=== PATIENT | female | born 1940 | race Caucasian/White ===

== ENCOUNTER 2018-04-27 09:48 | Emergency (ER) | payer MEDICARE ==
[2018-04-27 10:09] VITALS: BP 153/71
--- NOTE | 2018-04-27 10:52 | UC ---
Shoulder Pain HPI - HPI Summary HPI Summary: 77-year-old woman comes in with a chief complaint of right shoulder right hip and right pelvis pain after a fall 2 days ago. She slipped and fell on the ice and landed on her right side. She is able to get herself up but she is continuing to have pain in the right shoulder right hip and the right side of her pelvis. At rest her pain is minimal when she walks her pain goes to a 7 out of 10. During the fall she denies hitting her head and she is not on any blood thinners denies any neck pain chest pain shortness of breath or abdominal pain. She's been able to eat and drink fine bowels and bladder are normal. No complaint of any wrist or elbow or ankle foot pain. - History of Current Complaint Chief Complaint: UCLowerExtremity Stated Complaint: SP FALL-RT SHOULDER,HIP,KNEE INJURY Time Seen by Provider: 04/27/18 10:29 Hx Last Menstrual Period: n/a Pain Intensity: 8 - Allergies/Home Medications Allergies/Adverse Reactions: Allergies Allergy/AdvReac Type Severity Reaction Status Date / Time No Known Allergies Allergy Verified 04/27/18 10:09 Home Medications: Home Medications Acetaminophen [Tylenol Extra Strength] 1,000 mg PO ONCE PRN 04/27/18 [History Confirmed 04/27/18] PMH/Surg Hx/FS Hx/Imm Hx Previously Healthy: Yes Endocrine History: Hypothyroidism GI/ History: Gastroesophageal Reflux - Surgical History Surgical History: None - Family History Known Family History: Positive: Other - no FMH of osteoporosis - Social History Alcohol Use: None Substance Use Type: None Smoking Status (MU): Former Smoker Type: Cigarettes Amount Used/How Often: 1/2 - 1 PPD Length of Time of Smoking/Using Tobacco: 20-30 Years Have You Smoked in the Last Year: No When Did the Patient Quit Smoking/Using Tobacco: 1998 Review of Systems All Other Systems Reviewed And Are Negative: Yes Constitutional: Positive: Negative Skin: Positive: Negative Eyes: Positive: Negative ENT: Positive: Negative Respiratory: Positive: Negative Cardiovascular: Positive: Negative Gastrointestinal: Positive: Negative Motor: Positive: Negative Neurovascular: Positive: Negative Musculoskeletal: Positive: Other: - SEE HPI Neurological: Positive: Negative Psychological: Positive: Negative Is Patient Immunocompromised?: No Physical Exam Triage Information Reviewed: Yes Appearance: Well-Appearing, Well-Nourished, Pain Distress - WITH AMBULATION AND ROM RT SHOULDER Vital Signs: Initial Vital Signs Temp 97.5 F 04/27/18 10:03 Pulse 71 04/27/18 10:03 Resp 16 04/27/18 10:03 BP 153/71 04/27/18 10:03 Pulse Ox 97 04/27/18 10:03 Vital Signs Reviewed: Yes Eye Exam: Normal Eyes: Positive: Conjunctiva Clear Neck exam: Normal Neck: Positive: Supple, Nontender Respiratory: Positive: Chest non-tender, Lungs clear, Normal breath sounds, No respiratory distress Cardiovascular: Positive: RRR Abdominal Exam: Normal Abdomen Description: Positive: Nontender, Soft Musculoskeletal: Positive: Other: - Patient is tender to palpation of the right shoulder joint. Range of motion is limited in flexion and abduction to 70 secondary to pain. Patient has normal radial pulses normal capillary refill in the arms fingers wrists and elbows have full range of motion and full strength. Patient is tender to palpation on the right greater "trochanter of the right hip. Also tender to palpation of the right SI joint. Patient's tender to palpation on the right knee she has full range of motion of the right knee and is stable to exam. Neurological Exam: Normal Neurological: Positive: Alert, Muscle Tone Normal Psychological Exam: Normal Psychological: Positive: Age Appropriate Behavior Skin Exam: Normal Shoulder Course/Dx - Course Course Of Treatment: Order Information: KNEE RIGHT 4+ VWS. Accession Number: [id number]. CPT: 76251. Indication: Right knee pain. 4 views of the right knee demonstrates no fracture. No joint effusion is noted. IMPRESSION: No fracture of the right knee is noted. . <Electronically signed by Millie Haile MD in OV> 04/27/18 1110. Order Information: SHOULDER RIGHT 2+ VWS. Accession Number: [id number]. CPT: 32285. Indication: RIGHT shoulder pain post fall. Comparison: No relevant prior exams available on the [facility] for comparison. Technique: Internal rotation AP, external rotation Grashey, scapular Y, axillary views. RIGHT shoulder. REPORT AND IMPRESSION: #. Suggestion of fracture involving the coracoid process of the scapula with approximate. 0.6 cm lateral displacement reference the external rotation view. No additional fracture. evident. #. Normal acromioclavicular and glenohumeral joint alignment. #. Probable glenohumeral joint effusion. Suggestion of soft tissue swelling at the. axillary level. #. Correlate with clinical assessment and consider CT for further evaluation. . <Electronically signed by Kenneth Do MD in OV> 1112. Order Information: CT PELVIS W/O. Accession Number: [id number]. CPT : 33567. HISTORY: RT HIP/PELVIS PAIN S/P FALL. COMPARISONS: None. TECHNIQUE: Multiple contiguous axial CT images are obtained of the pelvis , with coronal. and sagittal multiplanar reconstructions, without intravenous contrast administration. FINDINGS: BONE DENSITY: There is diffuse osteopenia. BONES: There is a longitudinally oriented nondisplaced fracture through the right sacral. ala. JOINTS: There is moderate osteoarthritis of the hips with mild osteoarthritis of the SI. joints. MUSCULATURE: Unremarkable. ALIGNMENT: There is no dislocation. SOFT TISSUES: There is diverticulosis of the colon. There is atherosclerosis of the aorta. OTHER FINDINGS: Degenerative changes are noted of the lower lumbar spine. IMPRESSION: 1. NONDISPLACED FRACTURE OF THE RIGHT SACRUM. 2. OSTEOPENIA. 3. OSTEOARTHRITIS. . <Electronically signed by Jass Botello MD in OV> 04/27/18 5119. I discussed the x-rays with the patient. Patient is minimal shoulder pain. She's been able to move her shoulder. Overall therefore her neck and use a sling at this time to help maintain range of motion. Right sacrum fracture is nondisplaced and the patient's been able to ambulate. I recommended that she uses a walker at home and minimize ambulation to just activities of daily living. The plan will be to follow-up with orthopedics. Patient will be taking acetaminophen for pain as needed. I let her know if anything got worse she needed to get reevaluated right away. - Differential Dx/Diagnosis Provider Diagnosis: Closed right scapular fracture, Fracture of sacrum, Contusion of right knee Discharge - Sign-Out/Discharge Documenting (check all that apply): Patient Departure All imaging exams completed and their final reports reviewed: Yes - Discharge Plan Condition: Stable Disposition: HOME Patient Education Materials: Sacral Fracture (ED), Knee Pain (ED), Scapular Fracture (ED) Referrals: Maurice Ledesma MD [Primary Care Provider] - Manuel Mckenzie MD [Medical Doctor] - Additional Instructions: FOLLOW UP WITH ORTHOPEDICS, DR MCKENZIE. GET RECHECKED FOR ANY WORSENING OF YOUR CONDITION; PAIN, WEAKNESS, NUMBNESS, DIFFICULTY CONTROLLING BOWEL OR BLADDER, YOU FEEL ILL OR QUESTIONS OR CONCERNS. - Billing Disposition and Condition Condition: STABLE Disposition: Home
== END 2018-04-27 12:25 | disposition home or self-care (01) ==
LOC: UCCORT 09:48
DX: S42.101A Fracture of unspecified part of scapula, right shoulder, initial encounter for closed fracture (principal); S80.01XA Contusion of right knee, initial encounter; S32.10XA Unspecified fracture of sacrum, initial encounter for closed fracture; Z87.891 Personal history of nicotine dependence; W00.0XXA Fall on same level due to ice and snow, initial encounter; Y92.9 Unspecified place or not applicable
CPT/HCPCS: 72192; 99211; G0463

== ENCOUNTER 2018-07-19 08:16 | Inpatient (IN) | payer MEDICARE ==
--- NOTE | 2018-07-06 13:24 | HP ---
HISTORY AND PHYSICAL: DATE OF ADMISSION/SURGERY: 07/19/18 PROVIDER: Dr. Sara Jackson* (dictated by BEBETO Carrillo). HISTORY OF PRESENT ILLNESS: Ms. Blount is a 77-year-old female who reports acute on chronic bilateral hip pain that has been plaguing her for many years. She states the pain is an 8/10 and is sharp and constant in her groin. She finds difficulty ambulating even half a block. She has been using a rolling walker to ambulate. She is unable to take part in physical therapy at this time because of the severity of her pain. She has been using meloxicam, heat, ice and rest without any relief. She has failed conservative management and would like to undergo a right total hip arthroplasty. PAST MEDICAL HISTORY: 1. GERD. 2. Thyroid disease. PAST SURGICAL HISTORY: None. MEDICATIONS: 1. Levothyroxine sodium mcg. 2. Omeprazole 40 mg. 3. Tylenol 500 mg. 4. Metoprolol. 5. Tramadol. ALLERGIES: No known drug allergies. FAMILY HISTORY: 1. Heart disease. 2. COPD. SOCIAL HISTORY: The patient lives alone. She is retired. No tobacco, alcohol , or recreational drug use. She has been ambulating with a walker. REVIEW OF SYSTEMS: General: The patient denies any fevers, chills, or night sweats. No known anesthesia problems. HEENT: The patient denies any headaches or lightheadedness. Cardiothoracic: The patient denies any chest pain or heart palpitations. Pulmonary: The patient denies any shortness of breath with exertion or chronic cough. GI: The patient denies any nausea, vomiting, diarrhea, or constipation. : The patient denies any nocturia, urinary frequency, or urgency. Musculoskeletal: The patient denies any chronic or intermittent back pain. Neuro: The patient denies any paresthesias, numbness , seizures, or stroke. Integument: The patient denies any abrasions, lesions, rashes, lumps, or open sores. PHYSICAL EXAMINATION GENERAL: The patient is alert and oriented x3, appropriate mood and affect, appropriate dress and hygiene. HEENT: Normocephalic, atraumatic. Hearing and vision are grossly intact. PULMONARY: Lungs are clear to auscultation bilaterally with no wheezes, rales, or rhonchi. CARDIO: Regular rate and rhythm. Normal S1 and S2. No appreciable S3 or S4. No murmurs, rubs, or gallops. MUSCULOSKELETAL: Inspection of the right hip reveals no erythema or ecchymosis. Skin is warm, dry, and intact. Hip flexion to 80 degrees with severe groin pain. She has 0 degrees of internal rotation and 10 degrees of external rotation with groin pain. She is neurovascularly intact distally and has a 2+ dorsalis pedis pulse. IMPRESSION: Right hip severe end-stage osteoarthritis. PLAN: To the OR for a right total hip arthroplasty to be performed by Dr. Jackson on 07/19/18. The patient will return 10 to 14 days postoperatively for suture removal and followup. BEBETO CARRILLO [id number]/CPS #: [id number] MTDSophie
[~2018-07-19 08:16] MED LIST: Buffered Lidocaine 1% SYRIN* 1 ML/SYRINGE INTRADERM ONE; Dexamethasone IV* 4 MG/ML 1 ML (4 MG) IV SLOW PU ONE; Famotidine IV* 10 MG/ML 2 ML (20 mg) IV ONE; Gabapentin CAP(*) 300 MG PO ONE; Lactated Ringers 1000 ML Bag* 1,000 ML IV SCH; celeCOXIB CAP* 200 MG PO ONE
--- OUTSIDE RECORDS SUMMARY | 2018-07-19 08:20 | XMS REPORT | Continuity of Care Document ---
:1940 External Reference #:[id number] Author Name Braxton Rolandquinnelías Care Team Providers Name Role Phone Maurice Ledesma MD Primary Care Physician Unavailable Payers Date Identification Numbers Payment Provider Subscriber Policy Number: [id number] Medicare Blue Ppo Janeen Blount PayID: [id number] [address] [address] [place] [address] Expires: 2018 Policy Number: [id number] Medicare Janeen Blount PayID: [id number] [address] [place] [address] Advance Directives Description No Information Available Problems Description No Information Family History Date Family Member(s) Observation Comments General Heart Disease General Cancer General Chronic Obstructive Pulmonary Disease (COPD) Social History Type Date Description Comments Sex Unknown Marital Status Lives With Alone Occupation Retired ETOH Use Denies alcohol use Recreational Drug Use Denies Drug Use Tobacco Use Start: Unknown End: Unknown Patient is a former smoker Smoking Status Reviewed: 07/06/18 Patient is a former smoker Allergies, Adverse Reactions, Alerts Description No Known Drug Allergies Medications Medication Date Status Form Strength Qnty SIG Indications Ordering Provider Tramadol HCL 06/20/ Active Tablets 50mg 60tabs 1 tab Sara 2019 every 8 Manuel, M.D. hours as needed for pain Levothyroxine / Active Tablets 31mcg 1 by Unknown Sodium 0000 mouth every day Omeprazole / Active Capsules 40mg [address] mouth every day Tylenol / Active Capsules 500mg 2 tablets Unknown 0000 every 4 hours as needed for pain Metoprolol / Active Unknown Succinate ER 0000 Mobic 02/11/ Hx Tablets 7.5mg 30tabs 1 by Lula 2015 - mouth Calvo, M.D. 07/05/ daily as 2019 needed prn pain Vitamin D / Hx Tablets 1000Unit 1 by Unknown 0000 - mouth every day 2018 Multivitamin / Hx Tablets 1 by Unknown Adult 0000 - mouth 07/05/ every day 2018 Vitamin B-12 / Hx 1 by Unknown 0000 - mouth 07/05/ day 2018 Immunizations Description No Information Available Vital Signs Date Vital Result Comment 07/06/2018 9:52am Height 60 inches 5'0" Weight 164.00 lb Heart Rate 64 /min BP Systolic 154 mmHg BP Diastolic 84 mmHg BMI (Body Mass Index) 32.0 kg/m2 06/20/2018 9:18am Height 60 inches 5'0" Weight 174.00 lb Heart Rate 72 /min BP Systolic 146 mmHg BP Diastolic 86 mmHg Pain Level 8 BMI (Body Mass Index) 34.0 kg/m2 06/13/2018 10:40am Height 62 inches 5'2" Weight 179.00 lb BP Systolic Sitting 126 mmHg BP Diastolic Sitting 78 mmHg Respiratory Rate 17 /min Pain Level 8 BMI (Body Mass Index) 32.7 kg/m2 05/31/2018 11:02am Height 62 inches 5'2" Weight 179.00 lb BP Systolic Sitting 118 mmHg BP Diastolic Sitting 70 mmHg Respiratory Rate 17 /min Pain Level 4 BMI (Body Mass Index) 32.7 kg/m2 05/01/2018 11:32am Height 62 inches 5'2" Weight 179.00 lb BP Systolic Sitting 126 mmHg BP Diastolic Sitting 76 mmHg Respiratory Rate 16 /min Pain Level 8 tylenol before visit. BMI (Body Mass Index) 32.7 kg/m2 02/11/2015 1:49pm Height 62 inches 5'2" Weight 179.00 lb Heart Rate 76 /min BP Systolic Sitting 122 mmHg BP Diastolic Sitting 78 mmHg BMI (Body Mass Index) 32.7 kg/m2 Results Description No Information Available Procedures Date Code Description Status 06/13/2018 88358 Radiologic Exam Hip Unilateral With Pelvis 2-3 Views Completed 02/11/2015 06685 Rad Exam; Fingers Completed 02/11/2015 36699 Rad Exam; Fingers Completed Encounters Type Date Location Provider Dx Diagnosis Office Visit 06/20/2018 [facility] Sara Jackson, M16.11 Unilateral primary 8:45a [facility] oste[facility], right hip M16.12 Unilateral primary osteoarthritis, left hip M25.551 Pain in right hip M25.552 Pain in left hip Office Visit 06/13/2018 [facility]opedic Manuel Mcdonough M16.11 Unilateral primary 10:45a [facility] M[facility] MD osteoarthritis, AT [place] right hip Office Visit 05/31/2018 [facility] Manuel Mcdonough S32.110D Nondisp Zone I 11:15a [facility] Mckenzie MD fracture of sacrum, AT [place] subs for fx w routn heal Office Visit 05/01/2018 [facility]opedic Manuel Mcdonough S32.110A Nondisplaced Zone I 11:30a [facility] Mckenzie MD fracture of sacrum, [facility] [place] init for clos fx W19.xxxA Unspecified fall, initial encounter Office Visit 02/11/2015 [facility]opedic Jo Ann M19.041 Primary 1:40p [facility] Jones, osteoarthritis, [facility] [place] RPA-C right hand 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 at [facility]07/19/2018 1:30 pm - FRANKY Terrazas at [facility]07/19/2018 1:30 pm - BEBETO Barnhart at [facility]07/19/2018 1:30 pm - Sara Jackson M.D. at [facility]
--- OUTSIDE RECORDS SUMMARY | 2018-07-19 08:20 | XMS REPORT | Continuity of Care Document ---
:1940 External Reference #:[id number] Author Name Biju Dorothy Care Team Providers Name Role Phone Maurice Ledesma MD Primary Care Physician Unavailable Payers Date Identification Numbers Payment Provider Subscriber Policy Number: [id number] Medicare Blue Ppo Janeen Blount PayID: [id number] [address] [address] [place] [address] Expires: 2018 Policy Number: [id number] Medicare Janeen Blount PayID: [id number] [address] [place] [address] Advance Directives Description No Information Available Problems [...] is a former smoker Smoking Status Reviewed: 06/20/18 Patient is a former smoker Allergies, Adverse Reactions, Alerts Description No Known Drug Allergies Medications Medication Date Status Form Strength Qnty SIG Indications Ordering Provider Tramadol HCL 06/20/ Active Tablets 50mg 60tabs 1 tab Sara 2019 every 8 Le Jackson hours as needed for pain Mobic 02/11/ Active Tablets 7.5mg 30tabs 1 by Lula Calvo M.D. daily as needed prn pain Levothyroxine / Active Tablets 31mcg 1 by Unknown Sodium 0000 mouth every day Omeprazole / Active Capsules 40mg [address] mouth every day Vitamin D / Active Tablets 1000Unit 1 by Unknown 0000 mouth every day Multivitamin 00/00/ Active Tablets 1 by Unknown Adult 0000 mouth every day Vitamin B-12 00/00/ Active 1 by Unknown 0000 mouth every day Tylenol 00/00/ Active Capsules 500mg 2 tablets Unknown 0000 every 4 hours as needed for pain Immunizations Description No Information Available Vital Signs Date Vital Result Comment 06/20/2018 9:18am Height 60 inches 5'0" Weight [...] Available Procedures Date Code Description Status 06/13/2018 98543 Radiologic Exam Hip Unilateral With Pelvis 2-3 Views Completed 02/11/2015 55855 Rad Exam; Fingers Completed 02/11/2015 79128 Rad Exam; Fingers Completed Encounters Type Date Location Provider Dx Diagnosis Office Visit 06/20/2018 [facility] Sara Jackson, M16.11 Unilateral primary 8:45a [facility] osteoarthritis, right hip M16.12 Unilateral primary osteoarthritis, left hip M25.551 Pain in right hip M25.552 Pain in left hip Office Visit 06/13/2018 Adryan Mcdonough M16.11 Unilateral primary 10:45a [facility] Mck[facility] MD osteoarthritis, AT [place] right hip Office Visit 05/31/2018 Orthopedic Manuel Mcdonough S32.110D Nondisp [place] I 11:15a [facility] Mckenzie MD fracture of sacrum, AT [place] subs for fx w routn heal Office Visit 05/01/2018 Orthopedic Manuel Mcdonough S32.110A Nondisplaced Zone I 11:30a [facility] M[facility] MD fracture of sacrum, AT [place] init for clos fx W19.xxxA Unspecified fall, initial encounter Office Visit 02/11/2015 [facility] Jo Ann M19.041 Primary 1:40p [facility], osteoarthritis, AT [place] RPA-C right hand 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 at [facility]07/06/2018 10:00 am - Sara Jackson M.D. at [facility]06/20/2018 - Sara Jackson M.D.M16.11 Unilateral primary osteoarthritis, right hipFollow up:Follow up: 7-10 days before iuempuoC22.12 Unilateral primary osteoarthritis, left hipM25.551 Pain in right hipM25.552 Pain in left hip
[2018-07-19] MEDS ORDERED: celeCOXIB CAP* 100 MG ONE (08:23)
[2018-07-19] MEDS ORDERED: Gabapentin CAP(*) 300 MG ONE (08:23)
[2018-07-19] MEDS ORDERED: Dexamethasone IV* 4 MG/ML 1 ML (4 MG) ONE (08:23)
[2018-07-19] MEDS ORDERED: ceFAZolin 2 GM in NS PREMIX(*) 2 GM/100 ML BAG IVPB ONE (08:24)
[2018-07-19] MEDS ORDERED: Famotidine IV* 10 MG/ML 2 ML (20 mg) ONE (08:24)
[2018-07-19] MEDS ORDERED: fentaNYL* 50 MCG/ML 2 ML VIAL (100 MCG VIAL) ONE (11:12)
[2018-07-19] MEDS ORDERED: Midazolam* 1 MG/ML 2 ML VIAL (2 MG) ONE (11:12)
[2018-07-19] MEDS ORDERED: Bupivacaine 0.5% SDV PF* 30ML VIAL ONE (11:13)
[2018-07-19] MEDS ORDERED: Propofol* 500 MG/50 ML BTL ONE (11:37)
[2018-07-19] MEDS ORDERED: Phenylephrine 10 MG/ML VIAL* 1 ML VIAL ONE (11:45)
[2018-07-19] MEDS ORDERED: EPHEDrine (Pressors)* 50 MG/ML VIAL ONE (12:53)
[2018-07-19] MEDS ORDERED: Ondansetron INJ* 2 MG/ML VIAL IV PRN (13:53)
[2018-07-19] MEDS ORDERED: oxyCODONE/Acetamin 5/325 MG* TAB PO PRN (13:53)
[2018-07-19] MEDS ORDERED: Morphine 4 MG/ML VIAL (1 ml) 4 MG/ML VIAL IV PRN (13:53)
[2018-07-19] MEDS ORDERED: diPHENhydraMINE IV* 50 MG/ML 1 ml VIAL (BENADRYL) IV PRN (13:53)
[2018-07-19] MEDS ORDERED: Bisacodyl SUPP* 10 MG SUPP PR PRN (13:53)
[2018-07-19] MEDS ORDERED: diPHENhydraMINE PO* 25 MG PO PRN (13:53)
[2018-07-19] MEDS ORDERED: Magnesium Hydroxide LIQ* 30 ML UDC PO PRN (13:53)
[2018-07-19] MEDS ORDERED: Polyethylene Glycol 3350* 17 GM PACKET PO PRN (13:53)
[2018-07-19] MEDS ORDERED: oxyCODONE TAB* 5 MG TAB PO PRN (13:53)
[2018-07-19] MEDS ORDERED: Cyclobenzaprine TAB* 10 MG PO PRN (13:53)
[2018-07-19] MEDS ORDERED: HYDROmorphone INJ1* 1 MG/ML SYRINGE IV PRN (14:23)
[2018-07-19] MEDS ORDERED: DiMENhydriNATE IV* 50 MG/ML VIAL IV PUSH PRN (14:23)
[2018-07-19] MEDS ORDERED: Naloxone* 0.4 MG/ML 1 ML VIAL IV PRN (14:23)
[2018-07-19] MEDS ORDERED: fentaNYL* 50 MCG/ML 2 ML VIAL (100 MCG VIAL) IV PRN (14:23)
[2018-07-19] MEDS: Lactated Ringers 1000 ML Bag* 1,000 ML IV SCH ×2 (15:26→19:18)
[2018-07-19] MEDS: traMADol TAB* 50 MG PO PRN (17:16)
[2018-07-19] MEDS: Acetaminophen TAB* 325 MG PO SCH (17:17)
--- NOTE | 2018-07-19 17:32 | OP ---
Operative Report - Blank - Operative Report Date of Operation: 07/19/18 Note: RICHY BAUGH 1940 Date Of Surgery: 07/19/18 Sara Jackson MD Leather Etcher: Shelbi TATE did help throughout the procedure with preparation of the hip, wound retraction, manipulation of the hip, and wound closure. Anesthesiologist: Dr. Reddy Anesthesia Type: Spinal Preoperative Diagnosis: right severe degenerative osteoarthritis of the hip Postoperative Diagnosis: As above Procedure Performed: right Total Hip Arthroplasty Complications: None Specimen: Femoral head and acetabular reamings sent to pathology. Hardware used: This is uncemented Sharif total hip arthroplasty hardware for the femur a size 5 accolade II with 127 degree neck femoral component, for the acetabulum a size 52E trident II tritanium cluster hole shell, a single 20 mm screw, for the insert a size 36E trident x 3 insert, and for the femoral head a size 36 - 2.5 ceramic V40 femoral head. Brief history/Indication: RICHY BAUGH was known in clinic and had a history of severe right hip pain. She failed conservative treatment with anti- inflammatories, pain pills, intra-articular injections and physical therapy. She elected to undergo right total hip arthroplasty due to continued pain and decreased quality of life. Radiographs showed severe end stage osteoarthritis of the hip with bone on bone contact. Informed consent was obtained from the patient. She understood the risks of surgery included but were not limited to: bleeding, infection, damage to nearby structures, intraoperative fracture, nerve palsy, failure of the hardware, early loosening, stiffness or loss of motion, dislocation, leg length discrepancy, anesthesia complications, stroke, heart attack, blood clot and . She wished to proceed. Intra-Operative findings: Intraoperatively the patient was noted to have severe loss of cartilage of the acetabulum and femoral head. Description of the Procedure: RICHY BAUGH was identified in the preanesthesia unit. Her right hip was marked as the correct operative side. Informed consent was signed and placed in the chart. The patient was taken to the operating room and placed under anesthesia without complication. A schafer catheter was placed. The patient was placed on the peg board with all bony prominences well padded. The right lower extremity was prepped and draped in the usual sterile fashion. Preoperative time -out was made to correctly identify the patient, side and site. Appropriate intraoperative antibiotics were given within one hour of incision. A standard posterior incision was made and carried sharply down to the lateral fascia. A new 10 blade was used to make an incision in the fascia in line with the skin incision. A charnley retractor was placed. The piriformis and conjoined tendons were identified and elevated off the posterolateral femur using electrocautery. These were tagged with number 5 Ethibond. Next electrocautery was used to make a posterolateral capsular flap and this was tagged with number 5 Ethibonds. The hip was carefully dislocated. Lesser trochanter to the center of the femoral head was measured at 55 mm. The oscillating saw was used to make the femoral neck cut. The femoral head was carefully removed. The femur was retracted anteriorly and the acetabular retractors were placed. Long-handled knife was used to sharply remove any remaining labrum from the acetabular rim. The acetabulum was sequentially reamed up to a size 51. A bleeding subchondral bone bed was obtained. A trial liner was placed and had excellent fit and stability. A 52E trident II tritanium cup was placed and had excellent stability with appropriate anteversion and abduction angle. A size 36 E trident x 3 liner was impacted into the acetabular shell. The liner was checked for stability and was stable. Next attention was turned to preparation of the femoral canal. A canal finder was used to enter the proximal femur. The femoral canal was sequentially broached up to a size 5 femoral broach trial. A trial neck and 36 - 2.5 trial femoral head was chosen. Lesser trochanter to center of the femoral head measurement was satisfactory. The hip was reduced and taken through a range of motion. The hip was stable in all positions with good soft tissue tension and appropriate leg lengths. The hip was dislocated and all trials were removed. The final implant chosen was a accolade II size 5 with 127 neck. This stem was impacted into the femoral canal without difficulty. The stem was stable with appropriate anteversion. The femoral head chosen was a 36 - 2.5 ceramic biolox. The head was impacted onto the femoral neck without difficulty. The final lesser trochanter to center of the femoral head measurement was satisfactory. The hip was reduced and taken through a range of motion. The hip was stable in all positions with good soft tissue tension and appropriate leg lengths. The hip was copiously irrigated with sterile saline. The previously tagged capsule and tendons were repaired to the posterolateral femur through two trochanteric drill holes. The lateral fascia layer was closed using number 1 vicryls. The rest of the incision was closed in a layered fashion using 0 and 2-0 vicryls. The skin was closed using 3-0 monocryl suture and Dermabond. Sterile adaptic, 4x4s and paper tape was used to cover the incision. The patients anesthesia was reversed without difficulty. She was taken to the PACU in stable condition. Intended weight-bearing will be as tolerated with posterior hip precautions.
--- NOTE | 2018-07-19 17:46 | PN ---
Progress Note - Progress Note Date of Service: 07/19/18 Note: Patient seen OOB in chair. Just ate dinner. hip pain controlled POD 0 s/p RTH. +DF right ankle, dressing dry. sensation intact.
[2018-07-19] MEDS: ceFAZolin 1 GM ADVAN(*) 1 GM in NS 0.9% 50 ML* 50 ML IVPB SCH (20:30)
[2018-07-19] MEDS: Magnesium Hydroxide LIQ* 30 ML UDC PO SCH (20:32)
[2018-07-19] MEDS: Docusate CAP* 100 MG PO SCH (20:32)
[2018-07-19] MEDS: oxyCODONE/Acetamin 5/325 MG* TAB PO PRN (23:43)
[2018-07-20] MEDS: Acetaminophen TAB* 325 MG PO SCH ×2 (02:55→09:59)
[2018-07-20] MEDS: traMADol TAB* 50 MG PO PRN (03:54)
[2018-07-20] MEDS: ceFAZolin 1 GM ADVAN(*) 1 GM in NS 0.9% 50 ML* 50 ML IVPB SCH ×2 (03:54→12:23)
[2018-07-20] MEDS ORDERED: Levothyroxine TAB* 25 MCG TAB PO SCH (06:00)
[2018-07-20] MEDS: oxyCODONE/Acetamin 5/325 MG* TAB PO PRN ×2 (06:18→09:58)
[2018-07-20 06:58] LABS: Hematocrit 31 % (33-41); Hemoglobin 10.3 g/dL (12.0-16.0); Mean Platelet Volume 9.1 fL (7.4-10.4); Platelet Count 173 10^3/uL (150-450)
[2018-07-20 07:45] LABS: BUN/Creatinine Ratio 20.4 (8-20); Calcium 8.3 mg/dL (8.6-10.3); EGFR African American 70.9 (>60); EGFR Non-African American 58.6 (>60); Potassium 4.1 mmol/L (3.5-5.0)
[2018-07-20] MEDS: Lactated Ringers 1000 ML Bag* 1,000 ML IV SCH (08:30)
[2018-07-20] MEDS ORDERED: Metoprolol Succinate XL TAB* 25 MG PO SCH (09:00)
[2018-07-20] MEDS ORDERED: Apixaban* 2.5 MG TAB PO SCH (09:00)
[2018-07-20] MEDS ORDERED: Cyanocobalamin TAB* 500 MCG PO SCH (09:00)
[2018-07-20] MEDS ORDERED: Cholecalciferol TAB* 1000 UNITS PO SCH (09:00)
[2018-07-20] MEDS ORDERED: Pantoprazole TAB * 40 MG TAB PO SCH (09:00)
[2018-07-20] MEDS ORDERED: Pneumococcal *Vac Polyvalent 0.5 ML VIAL IM ONE (09:00)
[2018-07-20] MEDS: Docusate CAP* 100 MG PO SCH (09:59)
[2018-07-20] MEDS: Magnesium Hydroxide LIQ* 30 ML UDC PO SCH (09:59)
[2018-07-20] MEDS ORDERED: Cephalexin CAP* 500 MG PO ONE (10:43)
--- NOTE | 2018-07-20 10:57 | DS ---
Orthopedic Discharge Summary - Discharge Summary Date of Admission:07/19/18 Date of Discharge: 07/20/18 Date of Surgery: 07/19/18 Attending Orthopedic Provider: Dr. Jackson Pre-operative Diagnosis: degenerative arthritis right hip Operative Procedure: Right total hip arthroplasty Condition of Patient: stable History: RICHY BAUGH is a 78 year old F with years of increasingly severe right hip pain. Patient has failed conservative management and has elected to undergo a right total hip replacement Hospital Course: RICHY was admitted to [facility] on 07/19/18. Patient underwent a right total hip arthroplasty without complication followed by a brief recovery in PACU and transfer to the Short Stay Surgical Unit in stable condition. Our hospitalist service, physical therapy and occupational therapy also participated in this patients care. Post-op day 1: patient was alert and in no acute distress. Dressing was clean, dry and intact. Operative extremity dorsiflexion and plantarflexion intact, sensation intact to light touch distally, DP2+. Dressing was changed, incision was clean, dry and intact. She lost IV access prior to her last dose of Cephalexin , therefore 1 dose of 500 mg Keflex given. Patient was deemed to be medically and orthopedically stable for discharge home. Home Medications Medication Instructions Recorded Confirmed Type Cholecalciferol TAB* [Vitamin D 1 tab PO QAM 10/13/13 07/06/18 History TAB*] Levothyroxine TAB* [Synthroid 25 31 mcg PO QAM 10/13/13 07/06/18 History MCG TAB*] Multivitamin [Multivitamins] 1 cap PO QAM 10/13/13 07/06/18 History Omeprazole CAP (NF) [Prilosec CAP* 40 mg PO QAM 10/13/13 07/06/18 History 20 MG] Cyanocobalamin TAB* [Vitamin B12 500 mg PO QAM 05/29/14 07/06/18 History TAB*] Acetaminophen [Tylenol Extra 1,000 mg PO ONCE PRN 04/27/18 07/06/18 History Strength] Metoprolol Succinate 25 mg PO QAM 07/06/18 07/06/18 History Apixaban* [Eliquis*] 2.5 mg PO BID #60 tab 07/20/18 Rx Docusate CAP* [Colace Cap*] 100 mg PO BID cap 07/20/18 Rx oxyCODONE/Acetamin 5/325 MG* 1 tab PO Q3H PRN #56 tab MDD 8 07/20/18 Rx [Percocet 5/325 TAB*] Discharge home this afternoon posterior hip precautions WBAT RLE Eliquis BID for 30 days post op Percocet as above for pain Meds to [facility] Follow up 10-14 days in office with Dr. Jackson
[2018-07-20 11:27] VITALS: BP 107/64
== END 2018-07-20 14:50 | disposition home health service (06) | DRG 470 ==
LOC: AA 08:16 → SSU 13:58
PROVIDERS: ADMIT Orthopaedic Surgery Adult Reconstructive Orthopaedic Surgery; ATTEND Orthopaedic Surgery Adult Reconstructive Orthopaedic Surgery
PROC: 0SR904A Replacement of Right Hip Joint with Ceramic on Polyethylene Synthetic Substitute, Uncemented, Open Approach (ICD-10-PCS; principal; 2018-07-19 11:15)
DX: M16.11 Unilateral primary osteoarthritis, right hip (principal); K21.9 Gastro-esophageal reflux disease without esophagitis; E03.9 Hypothyroidism, unspecified; I10 Essential (primary) hypertension; I35.0 Nonrheumatic aortic (valve) stenosis; M85.80 Other specified disorders of bone density and structure, unspecified site; L40.9 Psoriasis, unspecified; M54.16 Radiculopathy, lumbar region; J44.9 Chronic obstructive pulmonary disease, unspecified; Z82.5 Family history of asthma and other chronic lower respiratory diseases; Z82.49 Family history of ischemic heart disease and other diseases of the circulatory system
CPT/HCPCS: 36415; 72170; 80048; 85014; 85018; 85049; 88304; 88311; A9270-GY; C1713; C1776; G8978-GP-CL; G8979-GP-CI; G8987-GO-CI; G8988-GO-CI; G8989-GO-CI; J0690; J1100; J2250; J2704; J3010; J3490

== ENCOUNTER 2021-02-02 06:58 | Inpatient (IN) ==
[~2021-02-02 06:58] MED LIST changes: +Buffered Lidocaine 1% SYRIN 1 ml INTRADERM ONE; -Buffered Lidocaine 1% SYRIN* 1 ML/SYRINGE INTRADERM ONE; -Dexamethasone IV* 4 MG/ML 1 ML (4 MG) IV SLOW PU ONE; +DiMENhydriNATE IV 50 mg/ml 1 ml VIAL IV PUSH ONE; -Famotidine IV* 10 MG/ML 2 ML (20 mg) IV ONE; -Gabapentin CAP(*) 300 MG PO ONE; +HYDROcodone/ACETAMIN 5/325 mg TAB PO PRN; -Lactated Ringers 1000 ML Bag* 1,000 ML IV SCH; +Lactated Ringers 1000 ml BAG 1,000 ML IV SCH; +Metoclopramide 5 MG/ML VIAL (10 mg) IV PRN; +Naloxone 0.4 mg VIAL 0.4 mg/ml 1 ml VIAL IV PRN; +Ondansetron 4 mg VIAL 2 MG/ML 2 ml VIAL IV PRN; -celeCOXIB CAP* 200 MG PO ONE
[2021-02-02] MEDS ORDERED: Midazolam 2 mg/2 ml VIAL 1 mg/ml 2 ml VIAL (2 mg) ONE (07:09)
[2021-02-02] MEDS ORDERED: Lidocaine 2% PF 5 ML VIAL ONE (07:09)
[2021-02-02] MEDS ORDERED: Propofol 10 MG/ML 20 ML BTL ONE ×2 (07:09→11:25)
[2021-02-02] MEDS ORDERED: Ketamine HCL 50 mg/ml 10 ml VIAL (500 MG) ONE (07:09)
[2021-02-02] MEDS ORDERED: DiMENhydriNATE IV 50 mg/ml 1 ml VIAL ONE (07:12)
[2021-02-02] MEDS ORDERED: ceFAZolin 2 GM in NS PREMIX 2 GM/100 ML BAG IVPB ONE (07:13)
[2021-02-02] MEDS ORDERED: ROPIVACAINE 5 MG/ML 30 ML BTL (0.5%) ONE (07:19)
[2021-02-02] MEDS ORDERED: Buffered Lidocaine 1% SYRIN 1 ml INTRADERM ONE (07:28)
[2021-02-02] MEDS ORDERED: Phenylephrine 40 mcg/mL 10mL (400mcg) SYRINGE ONE ×2 (09:41→11:13)
[2021-02-02] MEDS ORDERED: Magnesium Hydroxide LIQ 30 ML UDC PO PRN (10:28)
[2021-02-02] MEDS ORDERED: Lactulose 30 ml UDC PO PRN (10:28)
[2021-02-02] MEDS ORDERED: Ondansetron 4 mg VIAL 2 MG/ML 2 ml VIAL IV PRN (10:28)
[2021-02-02] MEDS ORDERED: diPHENhydraMINE 25 mg TAB PO PRN (10:28)
[2021-02-02] MEDS ORDERED: Ondansetron ODT 4 mg TAB 4 MG TAB PO PRN (10:28)
[2021-02-02] MEDS ORDERED: Morphine 2 MG/ML SYRINGE IV PRN (10:28)
[2021-02-02] MEDS ORDERED: diPHENhydraMINE IV 50 MG/ML 1 ml VIAL (BENADRYL) IV PRN (10:28)
[2021-02-02] MEDS ORDERED: fentaNYL 100 mcg/2 ml 50 MCG/ML VIAL ONE ×2 (10:31→12:38)
[2021-02-02] MEDS ORDERED: EPHEDrine (Pressors) 50 MG/ML VIAL ONE (10:46)
[2021-02-02] MEDS ORDERED: HYDROcodone/ACETAMIN 5/325 mg TAB ONE (12:23)
[2021-02-02] MEDS: fentaNYL 100 mcg/2 ml 50 MCG/ML VIAL IV PRN ×4 (12:39→12:59)
[2021-02-02] MEDS ORDERED: Morphine 2 MG/ML SYRINGE ONE (14:15)
[2021-02-02] MEDS: Lactated Ringers 1000 ml BAG 1,000 ML IV SCH (15:04)
[2021-02-02] MEDS: ceFAZolin 1 GM ADVAN 1 GM in NS 0.9% 50 ML 50 ML IVPB SCH (17:43)
[2021-02-02] MEDS: Magnesium Hydroxide LIQ 30 ML UDC PO SCH (19:56)
[2021-02-03] MEDS: ceFAZolin 1 GM ADVAN 1 GM in NS 0.9% 50 ML 50 ML IVPB SCH ×2 (01:36→08:26)
[2021-02-03] MEDS: Lactated Ringers 1000 ml BAG 1,000 ML IV SCH (01:41)
[2021-02-03 07:32] LABS: Hematocrit 34 % (35-47); Hemoglobin 11.4 g/dL (12.0-16.0); Mean Platelet Volume 7.7 fL (7.4-10.4); Platelet Count 242 10^3/uL (150-450)
[2021-02-03 07:50] LABS: Calcium 8.9 mg/dL (8.6-10.3); Potassium 4.1 mmol/L (3.5-5.0)
[2021-02-03] MEDS: Magnesium Hydroxide LIQ 30 ML UDC PO SCH ×2 (08:26→21:53)
[2021-02-03] MEDS: Vitamin THERAPEUTIC TAB PO SCH (08:27)
[2021-02-03] MEDS ORDERED: Enoxaparin 30 MG/0.3 ML SYR SUBCUT SCH (12:00)
[2021-02-03] MEDS ORDERED: MULTIVITAMIN PO SCH (18:00)
[2021-02-03] MEDS: Cholecalciferol (VIT D3) 1,000 unit TAB PO SCH (21:08)
[2021-02-04 05:45] LABS: Hematocrit 33 % (35-47); Hemoglobin 11.4 g/dL (12.0-16.0); Mean Platelet Volume 7.9 fL (7.4-10.4); Platelet Count 241 10^3/uL (150-450)
[2021-02-04] MEDS: Vitamin THERAPEUTIC TAB PO SCH (10:08)
[2021-02-04] MEDS: Magnesium Hydroxide LIQ 30 ML UDC PO SCH ×2 (10:09→20:22)
[2021-02-04] MEDS: Cholecalciferol (VIT D3) 1,000 unit TAB PO SCH (17:48)
[2021-02-05 06:48] LABS: Hematocrit 30 % (35-47); Hemoglobin 10.2 g/dL (12.0-16.0); Platelet Count 234 10^3/uL (150-450)
[2021-02-05 07:08] LABS: Calcium 8.7 mg/dL (8.6-10.3); Potassium 4.2 mmol/L (3.5-5.0)
[2021-02-05] MEDS: Vitamin THERAPEUTIC TAB PO SCH (09:41)
[2021-02-05] MEDS: Magnesium Hydroxide LIQ 30 ML UDC PO SCH ×2 (09:41→22:28)
[2021-02-05 12:50] LABS: Albumin 3.2 g/dL (3.2-5.2); Albumin/Globulin Ratio 1.1 (1-3); Globulin 2.8 g/dL (2-4); Magnesium 2.2 mg/dL (1.9-2.7); Total Bilirubin 0.6 mg/dL (0.2-1.0)
[2021-02-05] MEDS: Cholecalciferol (VIT D3) 1,000 unit TAB PO SCH (17:52)
[2021-02-05 18:01] LABS: Urine Appearance Cloudy; Urine Bilirubin Negative (Negative); Urine Blood 2+ (Negative); Urine Color Amber; Urine Glucose Negative (Negative); Urine Ketones Negative (Negative); Urine Nitrite Negative (Negative); Urine Protein 1+(30 mg/dL) (Negative); Urine Specific Gravity 1.024 (1.002-1.030); Urine Urobilinogen Negative (Negative)
[2021-02-05 18:07] LABS: Urine Bacteria Absent (Absent); Urine Red Blood Cell 2+(6-10/hpf) (Absent); Urine Squamous Epithelial Cell Present (Absent); Urine White Blood Cell 1+(6-10/hpf) (Absent)
[2021-02-06 05:29] LABS: ABS Basophils 0.1 10^3/ul (0-0.2); ABS Eosinophils 0.1 10^3/ul (0-0.6); ABS Lymphocytes 0.9 10^3/ul (1.0-4.8); ABS Monocytes 0.5 10^3/ul (0-0.8); ABS Neutrophils 6.3 10^3/ul (1.5-7.7); Eosinophil % 1.2 %; Hematocrit 29 % (35-47); Hemoglobin 10.2 g/dL (12.0-16.0); Lymphocyte % 11.4 %; Mean Corpuscular HGB Conc 35 g/dL (31-36); Mean Corpuscular Hemoglobin 33 pg (27-31); Mean Corpuscular Volume 95 fL (80-97); Mean Platelet Volume 7.6 fL (7.4-10.4); Platelet Count 270 10^3/uL (150-450); Red Blood Count 3.08 10^6 /uL (3.70-4.87); Red Cell Distribution Width 13 % (10-15); White Blood Count 7.9 10^3/uL (3.5-10.8)
[2021-02-06 05:36] LABS: INR 1.31 (0.86-1.15)
[2021-02-06 05:46] LABS: Calcium 8.8 mg/dL (8.6-10.3); Potassium 4.4 mmol/L (3.5-5.0)
[2021-02-06] MEDS: Vitamin THERAPEUTIC TAB PO SCH (08:13)
[2021-02-06] MEDS: Magnesium Hydroxide LIQ 30 ML UDC PO SCH ×3 (08:19→21:10)
[2021-02-06] MEDS: Cholecalciferol (VIT D3) 1,000 unit TAB PO SCH (17:27)
[2021-02-07] MEDS ORDERED: NS 0.9% 500 ml BAG 500 ML IV ONE (05:00)
[2021-02-07] MEDS: Vitamin THERAPEUTIC TAB PO SCH (09:03)
[2021-02-07] MEDS: Magnesium Hydroxide LIQ 30 ML UDC PO SCH ×3 (09:05→22:16)
[2021-02-07 14:01] LABS: Magnesium 2.3 mg/dL (1.9-2.7)
[2021-02-07 15:05] LABS: ABS Eosinophils 0.3 10^3/ul (0-0.6); ABS Lymphocytes 1.4 10^3/ul (1.0-4.8); ABS Neutrophils 8.6 10^3/ul (1.5-7.7); Eosinophil % 2.5 %; Hematocrit 32 % (35-47); Hemoglobin 10.7 g/dL (12.0-16.0); Lymphocyte % 12.6 %; Mean Corpuscular HGB Conc 34 g/dL (31-36); Mean Corpuscular Hemoglobin 32 pg (27-31); Mean Corpuscular Volume 96 fL (80-97); Mean Platelet Volume 7.6 fL (7.4-10.4); Platelet Count 362 10^3/uL (150-450); Red Blood Count 3.31 10^6 /uL (3.70-4.87); Red Cell Distribution Width 13 % (10-15); White Blood Count 11.3 10^3/uL (3.5-10.8)
[2021-02-07] MEDS ORDERED: Diltiazem IV push/loading dose 5 MG/ML 5 ML vial (25 mg) IV SLOW PU ONE ×3 (15:20→20:08)
[2021-02-07 15:23] LABS: Calcium 8.8 mg/dL (8.6-10.3); Magnesium 2.2 mg/dL (1.9-2.7); Potassium 4.4 mmol/L (3.5-5.0)
[2021-02-07 15:51] LABS: TSH Ultra Thyroid Stim Horm 6.66 mcIU/mL (0.34-5.60)
[2021-02-07] MEDS ORDERED: Diltiazem IV BAG D5W Premix 125 MG/125 ML BAG IV SCH (16:00)
[2021-02-07] MEDS ORDERED: fentaNYL 100 mcg/2 ml 50 MCG/ML VIAL IV SLOW PU PRN ×2 (17:04→17:13)
[2021-02-07] MEDS ORDERED: fentaNYL 100 mcg/2 ml 50 MCG/ML VIAL ONE (17:05)
[2021-02-07] MEDS: Cholecalciferol (VIT D3) 1,000 unit TAB PO SCH (17:27)
[2021-02-08] MEDS: Vitamin THERAPEUTIC TAB PO SCH (08:08)
[2021-02-08] MEDS ORDERED: Enoxaparin 80 MG/0.8 ML SYR SUBCUT ONE (10:30)
[2021-02-08] MEDS ORDERED: Lactated Ringers 1000 ml BAG 1,000 ML IV SCH (14:00)
[2021-02-08] MEDS ORDERED: Haloperidol 5 mg/ml SDV IV/IM 5 MG/ML AMP IV SLOW PU PRN (16:53)
[2021-02-08] MEDS ORDERED: Haloperidol 5 mg/ml SDV IV/IM 5 MG/ML AMP ONE (16:57)
[2021-02-08] MEDS: Cholecalciferol (VIT D3) 1,000 unit TAB PO SCH (17:00)
[2021-02-08] MEDS ORDERED: LORazepam 2 mg VIAL 1 ml IV PUSH ONE (18:09)
[2021-02-08] MEDS ORDERED: Lorazepam PYXIS KEY PRN (18:09)
[2021-02-08] MEDS ORDERED: LORazepam 2 mg VIAL 1 ml IV PUSH PRN (18:49)
[2021-02-09] MEDS ORDERED: Buffered Lidocaine 1% SYRIN 1 ml INTRADERM ONE (06:00)
[2021-02-09] MEDS: Levothyroxine 100 MCG/5 ML VIAL IV SCH (06:26)
[2021-02-09 07:04] LABS: ABS Eosinophils 0.3 10^3/ul (0-0.6); ABS Lymphocytes 1.5 10^3/ul (1.0-4.8); ABS Monocytes 0.6 10^3/ul (0-0.8); ABS Neutrophils 5.4 10^3/ul (1.5-7.7); Eosinophil % 4.3 %; Hematocrit 29 % (35-47); Hemoglobin 9.7 g/dL (12.0-16.0); Lymphocyte % 18.8 %; Mean Corpuscular HGB Conc 34 g/dL (31-36); Mean Corpuscular Hemoglobin 33 pg (27-31); Mean Corpuscular Volume 98 fL (80-97); Mean Platelet Volume 7.7 fL (7.4-10.4); Platelet Count 338 10^3/uL (150-450); Red Blood Count 2.92 10^6 /uL (3.70-4.87); Red Cell Distribution Width 13 % (10-15); White Blood Count 7.8 10^3/uL (3.5-10.8)
[2021-02-09 07:16] LABS: Activated Partial Thrombo Time 30.6 seconds (26.0-38.0); INR 1.26 (0.86-1.15)
[2021-02-09 07:22] LABS: Calcium 8.8 mg/dL (8.6-10.3); Potassium 4.8 mmol/L (3.5-5.0)
[2021-02-09 07:57] LABS: Magnesium 2.3 mg/dL (1.9-2.7); Phosphorus 4.4 mg/dL (2.5-5.0)
[2021-02-09] MEDS: Vitamin THERAPEUTIC TAB PO SCH (08:44)
[2021-02-09] MEDS ORDERED: fentaNYL 250 mcg/5 ml 50 MCG/ML 5 ml VIAL (250 MCG) ONE (13:17)
[2021-02-09] MEDS ORDERED: Propofol 10 MG/ML 20 ML BTL ONE ×3 (13:17→19:24)
[2021-02-09] MEDS ORDERED: Rocuronium 50 mg VIAL 10 mg/ml 5 ml VIAL (50 mg) ONE ×3 (13:17→18:37)
[2021-02-09] MEDS ORDERED: Ondansetron 4 mg VIAL 2 MG/ML 2 ml VIAL ONE (13:17)
[2021-02-09] MEDS ORDERED: Dexamethasone IV 4 MG/ML VIAL 1 ml VIAL ONE (13:17)
[2021-02-09] MEDS ORDERED: Lidocaine 2% PF 5 ML VIAL ONE (13:17)
[2021-02-09] MEDS ORDERED: Ropivacaine 5 MG/ML 20 ML VIAL 0.5% (100 MG) ONE (14:34)
[2021-02-09] MEDS ORDERED: ceFAZolin VIAL VIAL ONE (15:41)
[2021-02-09] MEDS ORDERED: Bupivacaine 0.5% SDV PF 30ML VIAL ONE ×3 (15:43→19:32)
[2021-02-09] MEDS ORDERED: Bupivacaine 0.5% 50 ML MDV VIAL ONE (15:44)
[2021-02-09] MEDS ORDERED: Phenylephrine 40 mcg/mL 10mL (400mcg) SYRINGE ONE (16:26)
[2021-02-09] MEDS ORDERED: EPHEDrine (Pressors) 50 MG/ML VIAL ONE (17:00)
[2021-02-09 17:28] LABS: PCO2 Arterial 39 mmHg (35-45); PO2 Arterial 163 mmHg (80-100)
[2021-02-09] MEDS ORDERED: Ketamine HCL 50 mg/ml 10 ml VIAL (500 MG) ONE (17:57)
[2021-02-09] MEDS ORDERED: Esmolol 10 MG/ML 10 ML (100 mg) ONE (18:16)
[2021-02-09] MEDS: Cholecalciferol (VIT D3) 1,000 unit TAB PO SCH (18:31)
[2021-02-09] MEDS ORDERED: Etomidate 20 mg/10 ml 2 MG/ML 10 ml VIAL ONE (18:40)
[2021-02-09] MEDS ORDERED: Succinylcholine 200 mg VIAL 20 mg/ml 10 ml VIAL (200 mg) ONE ×2 (18:42→18:43)
[2021-02-09] MEDS ORDERED: fentaNYL 100 mcg/2 ml 50 MCG/ML VIAL ONE ×2 (18:56→19:17)
[2021-02-09] MEDS ORDERED: Acetaminophen IV 1 GM/100ML 100 ML IV ONE ×2 (19:17→22:29)
[2021-02-09] MEDS ORDERED: HYDROmorphone 1 MG/1 ML SYRINGE ONE (19:39)
[2021-02-09] MEDS ORDERED: fentaNYL 100 mcg/2 ml 50 MCG/ML VIAL IV PRN (20:45)
[2021-02-09] MEDS ORDERED: Naloxone 0.4 mg VIAL 0.4 mg/ml 1 ml VIAL IV PRN (20:45)
[2021-02-09] MEDS ORDERED: HYDROmorphone 1 MG/1 ML SYRINGE IV PRN (20:45)
[2021-02-09] MEDS ORDERED: DiMENhydriNATE IV 50 mg/ml 1 ml VIAL IV PUSH PRN (20:45)
[2021-02-09] MEDS ORDERED: Metoprolol Tartrate 5 mg VIAL 5 ml VIAL (1 mg/ml) IV ONE (20:46)
[2021-02-09] MEDS ORDERED: Metoprolol Tartrate 5 mg VIAL 5 ml VIAL (1 mg/ml) ONE (20:52)
[2021-02-09 20:59] LABS: Hematocrit 26 % (35-47); Hemoglobin 8.8 g/dL (12.0-16.0); Mean Corpuscular HGB Conc 34 g/dL (31-36); Mean Corpuscular Hemoglobin 33 pg (27-31); Mean Corpuscular Volume 98 fL (80-97); Mean Platelet Volume 7.8 fL (7.4-10.4); Platelet Count 353 10^3/uL (150-450); Red Blood Count 2.67 10^6 /uL (3.70-4.87); Red Cell Distribution Width 14 % (10-15); White Blood Count 13.9 10^3/uL (3.5-10.8)
[2021-02-09] MEDS ORDERED: Lactated Ringers 500 ml BAG 500 ML IV ONE (22:17)
[2021-02-09] MEDS: Lactated Ringers 1000 ml BAG 1,000 ML IV SCH ×2 (22:50→22:56)
[2021-02-10] MEDS: ceFAZolin 1 GM X 3 DOSES POST-OP Q8H (AddVan) IVPB SCH ×3 (00:33→16:51)
[2021-02-10] MEDS ORDERED: Lactated Ringers 500 ml BAG 500 ML IV SCH (02:20)
[2021-02-10 03:42] LABS: Hematocrit 24 % (35-47); Mean Corpuscular HGB Conc 33 g/dL (31-36); Mean Corpuscular Hemoglobin 32 pg (27-31); Mean Corpuscular Volume 98 fL (80-97); Mean Platelet Volume 7.4 fL (7.4-10.4); Platelet Count 305 10^3/uL (150-450); Red Cell Distribution Width 14 % (10-15); White Blood Count 7.5 10^3/uL (3.5-10.8)
[2021-02-10 03:58] LABS: Calcium 8.1 mg/dL (8.6-10.3); Magnesium 1.9 mg/dL (1.9-2.7); Phosphorus 5.3 mg/dL (2.5-5.0); Potassium 4.7 mmol/L (3.5-5.0)
[2021-02-10] MEDS ORDERED: Magnesium Sulfate 2 gm BAG 2 GM/50 ML BAG IVPB ONE (04:48)
[2021-02-10] MEDS ORDERED: Acetaminophen IV 1 GM/100ML 100 ML IV PRN (05:37)
[2021-02-10] MEDS: Levothyroxine 100 MCG/5 ML VIAL IV SCH (05:42)
[2021-02-10] MEDS: Vitamin THERAPEUTIC TAB PO SCH (09:58)
[2021-02-10] MEDS: Enoxaparin 80 MG/0.8 ML SYR SUBCUT SCH ×2 (12:54→23:44)
[2021-02-10] MEDS ORDERED: Morphine 2 MG/ML SYRINGE IV PRN (14:19)
[2021-02-10] MEDS: Cholecalciferol (VIT D3) 1,000 unit TAB PO SCH (16:51)
[2021-02-11 04:11] LABS: Hematocrit 26 % (35-47); Hemoglobin 8.8 g/dL (12.0-16.0); Mean Corpuscular HGB Conc 34 g/dL (31-36); Mean Corpuscular Hemoglobin 32 pg (27-31); Mean Corpuscular Volume 95 fL (80-97); Mean Platelet Volume 7.5 fL (7.4-10.4); Platelet Count 389 10^3/uL (150-450); Red Blood Count 2.74 10^6 /uL (3.70-4.87); Red Cell Distribution Width 14 % (10-15); White Blood Count 10.2 10^3/uL (3.5-10.8)
[2021-02-11 04:28] LABS: Calcium 8.4 mg/dL (8.6-10.3); Magnesium 2.1 mg/dL (1.9-2.7); Phosphorus 3.4 mg/dL (2.5-5.0); Potassium 4.5 mmol/L (3.5-5.0)
[2021-02-11] MEDS: Levothyroxine 100 MCG/5 ML VIAL IV SCH (06:15)
[2021-02-11] MEDS: Enoxaparin 80 MG/0.8 ML SYR SUBCUT SCH ×2 (08:47→20:56)
[2021-02-11] MEDS: Vitamin THERAPEUTIC TAB PO SCH (08:47)
[2021-02-11] MEDS: Cholecalciferol (VIT D3) 1,000 unit TAB PO SCH (17:42)
[2021-02-12] MEDS: Vitamin THERAPEUTIC TAB PO SCH (10:02)
[2021-02-12] MEDS: Enoxaparin 80 MG/0.8 ML SYR SUBCUT SCH (10:03)
[2021-02-12 10:38] VITALS: BP 101/51
[2021-02-12 11:02] LABS: Rapid COVID-19 Molecular Undetected (Undetected)
== END 2021-02-12 12:45 | DRG 467 ==
LOC: AA 06:58 → SSU 10:28 → ICU 02-07 15:19
PROVIDERS: ADMIT Orthopaedic Surgery Adult Reconstructive Orthopaedic Surgery; ATTEND Orthopaedic Surgery Adult Reconstructive Orthopaedic Surgery